=== PATIENT | female | born 1990 | race Caucasian/White ===

== ENCOUNTER 2017-07-26 13:44 | Inpatient (IN) | payer OTHER ==
[~2017-07-26] VITALS: Ht 166.9 cm; Wt 91.8 kg
[2017-07-26] MEDS ORDERED: BISACODYL 10 MG SUPP PR PRN (15:30)
[2017-07-26] MEDS ORDERED: POLYETHYLENE GLYCOL 17 GM PACKET PO PRN (15:30)
[2017-07-26] MEDS ORDERED: OXYcodone IR 5MG TABLET PO PRN (15:30)
[2017-07-26] MEDS ORDERED: LABETALOL 5MG/ML, 20ML IVPush PRN (15:30)
[2017-07-26] MEDS ORDERED: DOCUSATE 100 MG CAPSULE PO PRN (15:30)
[2017-07-26] MEDS ORDERED: LORazepam 2 MG/ML, 1ML IVPush PRN (16:00)
[2017-07-26] MEDS ORDERED: LORazepam 2 MG/ML, 1ML IVPush ONE (16:00)
[2017-07-26] MEDS ORDERED: PLEASE ENTER ALLERGIES MC SCH (16:00)
[2017-07-26] MEDS ORDERED: MEROPENEM 1 GM in SODIUM CHLORIDE 0.9% 100 ML IV SCH (18:00)
[2017-07-26] MEDS ORDERED: GADOBUTROL 10 MMOL/10 ML VIAL ONE (18:01)
[2017-07-26] MEDS: SODIUM CHLORIDE 0.45% 1,000 ML IV SCH (18:24)
[2017-07-26] MEDS: ENOXAPARIN 40 MG/0.4 ML SQ SCH (18:24)
[2017-07-26] MEDS: HYDROmorphone 2 MG/ML, 1ML IVPush PRN ×4 (18:25→22:17)
[2017-07-26 19:00] VITALS: BP 142/76
[2017-07-26] MEDS ORDERED: LEVOFLOXACIN/PMX 750MG/150ML 150 ML IV SCH (20:00)
[2017-07-26] MEDS: METRONIDAZOLE PMX 500MG/100ML 100 ML IV SCH (20:01)
[2017-07-26 22:28] VITALS: BP 142/76
[2017-07-27] MEDS: HYDROmorphone 2 MG/ML, 1ML IVPush PRN ×5 (01:19→20:56)
[2017-07-27] MEDS: SODIUM CHLORIDE 0.45% 1,000 ML IV SCH ×4 (03:09→23:43)
[2017-07-27 04:00] VITALS: BP 143/77
[2017-07-27] MEDS: METRONIDAZOLE PMX 500MG/100ML 100 ML IV SCH (04:12)
[2017-07-27 04:30] LABS: MEAN CORPUSCULAR HEMOGLOBIN 29.9 pg (27.0-34.8); MEAN CORPUSCULAR HGB CONC 33.8 g/dL (32.4-35.8); MEAN CORPUSCULAR VOLUME 88.3 fL (80-100); MEAN PLATELET VOLUME 7.9 fL (7.4-10.4); PLATELET COUNT 474 x10^3/uL (130-400); RED BLOOD COUNT 3.31 x10^6/uL (3.82-5.3); RED CELL DISTRIBUTION WIDTH 15.1 % (9.6-15.2)
[2017-07-27 04:37] LABS: PROTHROMBIN TIME 10.3 Seconds (9.6-11.5)
[2017-07-27 04:48] LABS: HEMOGLOBIN A1C 10.1 % (4.2-6.3)
[2017-07-27 05:12] LABS: ALBUMIN 0.8 g/dL (3.4-5.0); ANION GAP 10 mmol/L (5-15); CALCIUM 7.5 mg/dL (8.5-10.1); CHLORIDE 98 mmol/L (98-107); CHOLESTEROL, TOTAL 322 mg/dL (140-239); TRIGLYCERIDES 627 mg/dL (50-200)
[2017-07-27 05:22] LABS: ALANINE AMINOTRANSFERASE 46 U/L (12-78); ALKALINE PHOSPHATASE 63 U/L (45-117); BILIRUBIN,TOTAL 0.2 mg/dL (0.2-1.0); CHOL/HDL RATIO 40.3; CREATININE 0.49 mg/dL (0.55-1.02); HDL CHOL % 2 % (28-40); HDL CHOLESTEROL (DIRECT) 8 mg/dL (40-60); TOTAL PROTEIN 5.9 g/dL (6.4-8.2)
[2017-07-27 05:29] LABS: SEDIMENTATION RATE > 120 mm/hr (0-20)
[2017-07-27 05:30] LABS: HCT (SEDRATE) 29.2 % (34.6-47.8)
[2017-07-27 05:36] LABS: MD YES
[2017-07-27 05:39] LABS: ANISOCYTOSIS 1+; BAND#(MANUAL) 0.85 x10^3/uL; BANDS%(MANUAL) 7 % (0-7); EOS#(MANUAL) 0.73 x10^3/uL (0.0-0.4); EOS% (MANUAL) 6 % (1-7); LYMPH#(MANUAL) 1.82 x10^3/uL (1-3.4); LYMPHS% (MANUAL) 15 % (22-44); METAMYELOCYTES# (MANUAL) 0.24 x10^3/uL (0-0); METAMYELOCYTES% (MANUAL) 2 % (0-1); MONOS#(MANUAL) 0.85 x10^3/uL (0.3-2.7); MONOS% (MANUAL) 7 % (2-9); MYELOCYTES# (MANUAL) 0.48 x10^3/uL (0-0); MYELOCYTES% (MANUAL) 4 % (0-0); SEG#(MANUAL) 7.14 x10^3/uL (1.8-6.8); SEGS% (MANUAL) 59 % (42-75)
[2017-07-27 05:40] LABS: <PLATELET ESTIMATE> INCREASED; <PLT MORPHOLOGY> NORMAL PLT MORPH; POLYCHROMASIA 1+; TOXIC GRAN 1+
[2017-07-27 05:49] LABS: FREE T4 (FREE THYROXINE) 0.89 ng/dL (0.76-1.46)
[2017-07-27] MEDS: PANTOPRAZOLE 40 MG IV IVPush SCH (08:23)
[2017-07-27] MEDS ORDERED: KETOROLAC 30 MG/1 ML IVPush PRN (09:30)
[2017-07-27] MEDS: NICOTINE 14MG/24 HR PATCH.TD24 TD SCH (11:31)
[2017-07-27] MEDS: INSULIN GLARGINE 100 UNITS/ML, PEN SQ-INSULIN SCH (12:28)
[2017-07-27] MEDS: INSULIN LISPRO 100 UNITS/ML, PEN SQ-INSULIN SCH ×3 (12:28→20:56)
[2017-07-27] MEDS: FENOFIBRATE 145 MG TABLET PO SCH (12:34)
[2017-07-27] MEDS: ENOXAPARIN 40 MG/0.4 ML SQ SCH (14:19)
[2017-07-27 14:55] VITALS: BP 137/79
[2017-07-27] MEDS: ACETAMINOPHEN 325 MG TABLET PO PRN (16:37)
[2017-07-27 19:44] VITALS: BP 142/86
[2017-07-28] MEDS: HYDROmorphone 2 MG/ML, 1ML IVPush PRN ×4 (02:55→22:43)
[2017-07-28 02:58] VITALS: BP 136/79
[2017-07-28] MEDS: ACETAMINOPHEN 325 MG TABLET PO PRN (05:00)
[2017-07-28 06:05] LABS: MEAN CORPUSCULAR HEMOGLOBIN 29.9 pg (27.0-34.8); MEAN CORPUSCULAR HGB CONC 33.8 g/dL (32.4-35.8); MEAN CORPUSCULAR VOLUME 88.5 fL (80-100); MEAN PLATELET VOLUME 7.5 fL (7.4-10.4); PLATELET COUNT 473 x10^3/uL (130-400); RED BLOOD COUNT 3.14 x10^6/uL (3.82-5.3); RED CELL DISTRIBUTION WIDTH 14.8 % (9.6-15.2)
[2017-07-28 06:15] LABS: ALBUMIN 0.8 g/dL (3.4-5.0); ANION GAP 11 mmol/L (5-15); CALCIUM 8.1 mg/dL (8.5-10.1); CHLORIDE 101 mmol/L (98-107)
[2017-07-28 06:20] LABS: ALANINE AMINOTRANSFERASE 36 U/L (12-78); ALKALINE PHOSPHATASE 64 U/L (45-117); BILIRUBIN,TOTAL 0.3 mg/dL (0.2-1.0); CREATININE 0.37 mg/dL (0.55-1.02); TOTAL PROTEIN 5.7 g/dL (6.4-8.2); TRIGLYCERIDES 397 mg/dL (50-200)
[2017-07-28] MEDS: INSULIN LISPRO 100 UNITS/ML, PEN SQ-INSULIN SCH ×4 (06:21→20:27)
[2017-07-28] MEDS: SODIUM CHLORIDE 0.45% 1,000 ML IV SCH ×3 (06:22→20:28)
[2017-07-28 06:24] LABS: MD YES
[2017-07-28 06:27] LABS: BAND#(MANUAL) 2.18 x10^3/uL; BANDS%(MANUAL) 16 % (0-7); EOS#(MANUAL) 0.14 x10^3/uL (0.0-0.4); EOS% (MANUAL) 1 % (1-7); LYMPH#(MANUAL) 2.86 x10^3/uL (1-3.4); LYMPHS% (MANUAL) 21 % (22-44); METAMYELOCYTES# (MANUAL) 0.68 x10^3/uL (0-0); METAMYELOCYTES% (MANUAL) 5 % (0-1); MONOS#(MANUAL) 1.09 x10^3/uL (0.3-2.7); MONOS% (MANUAL) 8 % (2-9); MYELOCYTES# (MANUAL) 0.54 x10^3/uL (0-0); MYELOCYTES% (MANUAL) 4 % (0-0); SEG#(MANUAL) 6.12 x10^3/uL (1.8-6.8); SEGS% (MANUAL) 45 % (42-75)
[2017-07-28 06:34] LABS: ANISOCYTOSIS 1+; POLYCHROMASIA 1+
[2017-07-28 06:35] LABS: <PLATELET ESTIMATE> INCREASED; <PLT MORPHOLOGY> NORMAL PLT MORPH
[2017-07-28 07:24] VITALS: BP 116/78
[2017-07-28] MEDS: PANTOPRAZOLE 40 MG IV IVPush SCH (09:55)
[2017-07-28] MEDS: NICOTINE 14MG/24 HR PATCH.TD24 TD SCH (09:56)
[2017-07-28] MEDS: FENOFIBRATE 145 MG TABLET PO SCH (13:04)
[2017-07-28] MEDS: INSULIN GLARGINE 100 UNITS/ML, PEN SQ-INSULIN SCH (13:05)
[2017-07-28 13:21] VITALS: BP 131/83
[2017-07-28] MEDS: ENOXAPARIN 40 MG/0.4 ML SQ SCH (16:03)
[2017-07-28 20:28] VITALS: BP 131/89
[2017-07-29 01:39] VITALS: BP 131/72
[2017-07-29] MEDS: SODIUM CHLORIDE 0.45% 1,000 ML IV SCH ×4 (02:33→22:51)
[2017-07-29] MEDS: HYDROmorphone 2 MG/ML, 1ML IVPush PRN ×3 (04:47→17:55)
[2017-07-29 07:45] VITALS: BP 117/79
[2017-07-29] MEDS: PANTOPRAZOLE 40 MG IV IVPush SCH (09:43)
[2017-07-29] MEDS: NICOTINE 14MG/24 HR PATCH.TD24 TD SCH (09:43)
[2017-07-29] MEDS: INSULIN LISPRO 100 UNITS/ML, PEN SQ-INSULIN SCH ×4 (09:44→20:25)
[2017-07-29] MEDS: FENOFIBRATE 145 MG TABLET PO SCH (11:45)
[2017-07-29] MEDS: INSULIN GLARGINE 100 UNITS/ML, PEN SQ-INSULIN SCH (11:45)
[2017-07-29 12:20] VITALS: BP 121/80
[2017-07-29] MEDS: ENOXAPARIN 40 MG/0.4 ML SQ SCH (16:09)
[2017-07-29 19:24] VITALS: BP 128/87
[2017-07-30] MEDS: HYDROmorphone 2 MG/ML, 1ML IVPush PRN ×4 (00:03→20:23)
[2017-07-30 00:10] VITALS: BP 124/77
[2017-07-30 05:30] LABS: MEAN CORPUSCULAR HEMOGLOBIN 30.1 pg (27.0-34.8); MEAN CORPUSCULAR HGB CONC 33.8 g/dL (32.4-35.8); MEAN CORPUSCULAR VOLUME 88.9 fL (80-100); MEAN PLATELET VOLUME 7.5 fL (7.4-10.4); PLATELET COUNT 487 x10^3/uL (130-400)
[2017-07-30] MEDS: SODIUM CHLORIDE 0.45% 1,000 ML IV SCH (05:32)
[2017-07-30 05:41] LABS: CHLORIDE 101 mmol/L (98-107)
[2017-07-30 05:59] LABS: ALANINE AMINOTRANSFERASE 29 U/L (12-78); ALBUMIN 0.9 g/dL (3.4-5.0); ALKALINE PHOSPHATASE 69 U/L (45-117); ANION GAP 8 mmol/L (5-15); BILIRUBIN,TOTAL 0.3 mg/dL (0.2-1.0); CALCIUM 8.1 mg/dL (8.5-10.1); CREATININE 0.39 mg/dL (0.55-1.02); TOTAL PROTEIN 5.9 g/dL (6.4-8.2); TRIGLYCERIDES 321 mg/dL (50-200)
[2017-07-30 06:10] LABS: MD YES
[2017-07-30 06:13] LABS: BAND#(MANUAL) 1.11 x10^3/uL; BANDS%(MANUAL) 9 % (0-7); EOS#(MANUAL) 0.12 x10^3/uL (0.0-0.4); EOS% (MANUAL) 1 % (1-7); LYMPH#(MANUAL) 1.23 x10^3/uL (1-3.4); LYMPHS% (MANUAL) 10 % (22-44); METAMYELOCYTES# (MANUAL) 0.49 x10^3/uL (0-0); METAMYELOCYTES% (MANUAL) 4 % (0-1); MONOS#(MANUAL) 0.12 x10^3/uL (0.3-2.7); MONOS% (MANUAL) 1 % (2-9); MYELOCYTES# (MANUAL) 0.25 x10^3/uL (0-0); MYELOCYTES% (MANUAL) 2 % (0-0); NRBC % (MANUAL) 1 % (0-1); PROGRANULOCYTES# (MANUAL) 0.12 x10^3/uL (0-0); PROGRANULOCYTES% (MANUAL) 1 % (0-0); SEG#(MANUAL) 8.86 x10^3/uL (1.8-6.8); SEGS% (MANUAL) 72 % (42-75)
[2017-07-30 06:15] LABS: <PLATELET ESTIMATE> INCREASED; <PLT MORPHOLOGY> NORMAL PLT MORPH; ANISOCYTOSIS 1+; POLYCHROMASIA 1+; TOXIC GRAN 1+
[2017-07-30] MEDS: INSULIN LISPRO 100 UNITS/ML, PEN SQ-INSULIN SCH ×5 (07:00→21:38)
[2017-07-30 07:25] VITALS: BP 115/81
[2017-07-30] MEDS: NICOTINE 14MG/24 HR PATCH.TD24 TD SCH (08:12)
[2017-07-30] MEDS: POTASSIUM CHLORIDE 20 MEQ in LACTATED RINGERS 1,000 ML IV SCH ×2 (08:12→22:31)
[2017-07-30] MEDS: PANTOPRAZOLE 40 MG IV IVPush SCH (08:12)
[2017-07-30] MEDS: FENOFIBRATE 145 MG TABLET PO SCH (12:07)
[2017-07-30] MEDS: INSULIN GLARGINE 100 UNITS/ML, PEN SQ-INSULIN SCH (12:08)
[2017-07-30 12:33] VITALS: BP 125/84
[2017-07-30] MEDS: ENOXAPARIN 40 MG/0.4 ML SQ SCH (15:35)
[2017-07-30 19:47] VITALS: BP 134/85
[2017-07-31] MEDS: ACETAMINOPHEN 325 MG TABLET PO PRN ×2 (00:20→20:41)
[2017-07-31] MEDS: INSULIN LISPRO 100 UNITS/ML, PEN SQ-INSULIN SCH ×7 (00:22→23:00)
[2017-07-31 02:00] VITALS: BP 127/91
[2017-07-31] MEDS: HYDROmorphone 2 MG/ML, 1ML IVPush PRN ×4 (03:32→22:50)
[2017-07-31] MEDS: POTASSIUM CHLORIDE 20 MEQ in LACTATED RINGERS 1,000 ML IV SCH ×3 (05:40→18:21)
[2017-07-31] MEDS: PANTOPRAZOLE 40 MG IV IVPush SCH (08:32)
[2017-07-31] MEDS: NICOTINE 14MG/24 HR PATCH.TD24 TD SCH (08:32)
[2017-07-31 08:39] VITALS: BP 123/80
[2017-07-31 12:25] VITALS: BP 136/84
[2017-07-31] MEDS: FENOFIBRATE 145 MG TABLET PO SCH (12:37)
[2017-07-31] MEDS: ONDANSETRON 2MG/ML, 2ML IVPush PRN ×2 (14:11→20:41)
[2017-07-31] MEDS: INSULIN GLARGINE 100 UNITS/ML, PEN SQ-INSULIN SCH (14:11)
[2017-07-31] MEDS: ENOXAPARIN 40 MG/0.4 ML SQ SCH (16:09)
[2017-07-31 20:50] VITALS: BP 125/86
[2017-08-01] MEDS: POTASSIUM CHLORIDE 20 MEQ in LACTATED RINGERS 1,000 ML IV SCH ×3 (01:40→16:20)
[2017-08-01 01:47] VITALS: BP 133/85
[2017-08-01] MEDS: INSULIN LISPRO 100 UNITS/ML, PEN SQ-INSULIN SCH ×6 (03:00→23:00)
[2017-08-01 07:14] VITALS: BP 138/85
[2017-08-01] MEDS: PANTOPRAZOLE 40 MG IV IVPush SCH (07:26)
[2017-08-01] MEDS: NICOTINE 14MG/24 HR PATCH.TD24 TD SCH (07:27)
[2017-08-01] MEDS: HYDROmorphone 2 MG/ML, 1ML IVPush PRN ×3 (07:27→20:10)
[2017-08-01] MEDS: ONDANSETRON 2MG/ML, 2ML IVPush PRN (07:40)
[2017-08-01 09:09] LABS: ANION GAP 9 mmol/L (5-15); CALCIUM 8.5 mg/dL (8.5-10.1); CHLORIDE 99 mmol/L (98-107); CREATININE 0.44 mg/dL (0.55-1.02)
[2017-08-01] MEDS ORDERED: OMNIPAQUE 350 MG/ML, 100ML BOTTLE ONE (10:24)
[2017-08-01] MEDS: FENOFIBRATE 145 MG TABLET PO SCH (12:51)
[2017-08-01] MEDS: INSULIN GLARGINE 100 UNITS/ML, PEN SQ-INSULIN SCH (12:52)
[2017-08-01 15:24] VITALS: BP 124/90
[2017-08-01] MEDS: ENOXAPARIN 40 MG/0.4 ML SQ SCH (16:20)
[2017-08-01] MEDS ORDERED: MAGNESIUM SULFATE PMX 2GM/50ML 50 ML IV ONE (17:30)
[2017-08-01 20:00] VITALS: BP 138/85
[2017-08-02 02:00] VITALS: BP 136/82
[2017-08-02] MEDS: INSULIN LISPRO 100 UNITS/ML, PEN SQ-INSULIN SCH ×6 (03:00→23:00)
[2017-08-02] MEDS: POTASSIUM CHLORIDE 20 MEQ in LACTATED RINGERS 1,000 ML IV SCH ×3 (03:21→17:19)
[2017-08-02] MEDS: HYDROmorphone 2 MG/ML, 1ML IVPush PRN ×3 (03:22→17:39)
[2017-08-02] MEDS: ONDANSETRON 2MG/ML, 2ML IVPush PRN ×2 (03:36→18:32)
[2017-08-02 06:54] VITALS: BP 120/82
[2017-08-02] MEDS: PANTOPRAZOLE 40 MG IV IVPush SCH (07:40)
[2017-08-02] MEDS: NICOTINE 14MG/24 HR PATCH.TD24 TD SCH (07:41)
[2017-08-02 12:35] VITALS: BP 125/84
[2017-08-02] MEDS: FENOFIBRATE 145 MG TABLET PO SCH (12:41)
[2017-08-02] MEDS: INSULIN GLARGINE 100 UNITS/ML, PEN SQ-INSULIN SCH (12:42)
[2017-08-02 14:46] LABS: ALANINE AMINOTRANSFERASE 22 U/L (12-78); ALBUMIN 1.2 g/dL (3.4-5.0); ANION GAP 7 mmol/L (5-15); CALCIUM 8.4 mg/dL (8.5-10.1); CHLORIDE 101 mmol/L (98-107); CREATININE 0.41 mg/dL (0.55-1.02)
[2017-08-02 14:48] LABS: ALKALINE PHOSPHATASE 67 U/L (45-117); BILIRUBIN,TOTAL 0.1 mg/dL (0.2-1.0); TOTAL PROTEIN 6.1 g/dL (6.4-8.2)
[2017-08-02] MEDS ORDERED: DULO60CA7 PO (15:43)
[2017-08-02] MEDS ORDERED: ESCI10TA10 PO (15:43)
[2017-08-02] MEDS ORDERED: DICY20TA3 PO (15:43)
[2017-08-02] MEDS ORDERED: OMEP10CA4 PO (15:43)
[2017-08-02] MEDS ORDERED: GABA300C10 PO (15:43)
[2017-08-02] MEDS: ENOXAPARIN 40 MG/0.4 ML SQ SCH (15:54)
[2017-08-02] MEDS ORDERED: DIPHENHYDRAMINE 25 MG CAPSULE PO PRN (17:00)
[2017-08-02 20:00] VITALS: BP 130/81
[2017-08-02] MEDS: DULOXETINE 30 MG CAPSULE.DR PO SCH (21:04)
[2017-08-03] MEDS: POTASSIUM CHLORIDE 20 MEQ in LACTATED RINGERS 1,000 ML IV SCH ×2 (00:14→06:19)
[2017-08-03] MEDS: HYDROmorphone 2 MG/ML, 1ML IVPush PRN (00:14)
[2017-08-03 02:00] VITALS: BP 139/89
[2017-08-03] MEDS: INSULIN LISPRO 100 UNITS/ML, PEN SQ-INSULIN SCH ×6 (02:03→23:00)
[2017-08-03 07:14] VITALS: BP 132/83
[2017-08-03] MEDS ORDERED: DULOXETINE 30 MG CAPSULE.DR PO SCH (09:00)
[2017-08-03] MEDS: CITALOPRAM 20 MG TABLET PO SCH (09:10)
[2017-08-03] MEDS ORDERED: FUROSEMIDE 20 MG/2 ML IV ONE (09:30)
[2017-08-03] MEDS: NICOTINE 14MG/24 HR PATCH.TD24 TD SCH (11:21)
[2017-08-03] MEDS: OXYcodone IR 5MG TABLET PO PRN ×2 (11:38→19:37)
[2017-08-03 12:40] VITALS: BP 121/80
[2017-08-03] MEDS: FENOFIBRATE 145 MG TABLET PO SCH (13:06)
[2017-08-03] MEDS: INSULIN GLARGINE 100 UNITS/ML, PEN SQ-INSULIN SCH (13:07)
[2017-08-03] MEDS: ENOXAPARIN 40 MG/0.4 ML SQ SCH (16:47)
[2017-08-03 19:56] VITALS: BP 123/70
[2017-08-03] MEDS: DULOXETINE 30 MG CAPSULE.DR PO SCH (21:17)
[2017-08-04] MEDS: OXYcodone IR 5MG TABLET PO PRN (00:43)
[2017-08-04 02:00] VITALS: BP 132/84
[2017-08-04] MEDS: INSULIN LISPRO 100 UNITS/ML, PEN SQ-INSULIN SCH ×6 (03:00→23:00)
[2017-08-04] MEDS: ACETAMINOPHEN 500 MG TABLET PO SCH ×3 (08:43→23:53)
[2017-08-04] MEDS: CITALOPRAM 20 MG TABLET PO SCH (08:43)
[2017-08-04 08:50] VITALS: BP 121/84
[2017-08-04] MEDS: NICOTINE 14MG/24 HR PATCH.TD24 TD SCH (11:07)
[2017-08-04] MEDS: FENOFIBRATE 145 MG TABLET PO SCH (13:34)
[2017-08-04] MEDS: INSULIN GLARGINE 100 UNITS/ML, PEN SQ-INSULIN SCH (13:40)
[2017-08-04 13:55] VITALS: BP 125/83
[2017-08-04] MEDS: ENOXAPARIN 40 MG/0.4 ML SQ SCH (16:03)
[2017-08-04 20:00] VITALS: BP 132/74
[2017-08-04] MEDS: DULOXETINE 30 MG CAPSULE.DR PO SCH (20:10)
[2017-08-05 02:00] VITALS: BP 125/85
[2017-08-05] MEDS: INSULIN LISPRO 100 UNITS/ML, PEN SQ-INSULIN SCH ×2 (03:00→08:19)
[2017-08-05] MEDS ORDERED: ACET500T71 PO (06:17)
[2017-08-05] MEDS ORDERED: METF500T4 PO (06:17)
[2017-08-05] MEDS ORDERED: FENO145T13 PO (06:17)
[2017-08-05] MEDS ORDERED: TRAM50TA2 PO (06:17)
[2017-08-05] MEDS ORDERED: INSU100I13 SQ-INSULIN (06:17)
[2017-08-05] MEDS ORDERED: OXYC5TAB3 PO (06:18)
[2017-08-05 07:02] VITALS: BP 111/76
[2017-08-05] MEDS ORDERED: ACETAMINOPHEN 325 MG TABLET ONE (08:18)
[2017-08-05] MEDS: ACETAMINOPHEN 500 MG TABLET PO SCH (08:26)
[2017-08-05] MEDS: CITALOPRAM 20 MG TABLET PO SCH (08:27)
[2017-08-05] MEDS: NICOTINE 14MG/24 HR PATCH.TD24 TD SCH (10:04)
== END 2017-08-05 10:51 | disposition home or self-care (01) | DRG 438 ==
LOC: CCU 15:02 → 4WST 07-27 13:34 → DCLOUNGE 08-05 10:34
PROVIDERS: ADMIT Internal Medicine; ATTEND Family Medicine
DX: K85.90 Acute pancreatitis without necrosis or infection, unspecified (principal); E43 Unspecified severe protein-calorie malnutrition; J96.01 Acute respiratory failure with hypoxia; E87.3 Alkalosis; R65.10 Systemic inflammatory response syndrome (SIRS) of non-infectious origin without acute organ dysfunction; E88.81 Metabolic syndrome and other insulin resistance; E11.65 Type 2 diabetes mellitus with hyperglycemia; E83.42 Hypomagnesemia; E87.1 Hypo-osmolality and hyponatremia; K86.3 Pseudocyst of pancreas; K75.9 Inflammatory liver disease, unspecified; D18.03 Hemangioma of intra-abdominal structures; Z88.6 Allergy status to analgesic agent; Z88.8 Allergy status to other drugs, medicaments and biological substances; E28.2 Polycystic ovarian syndrome; Z68.33 Body mass index [BMI] 33.0-33.9, adult; E66.9 Obesity, unspecified; E78.2 Mixed hyperlipidemia; F17.210 Nicotine dependence, cigarettes, uncomplicated; F32.9 Major depressive disorder, single episode, unspecified; F41.9 Anxiety disorder, unspecified; K25.9 Gastric ulcer, unspecified as acute or chronic, without hemorrhage or perforation; K58.0 Irritable bowel syndrome with diarrhea; K76.0 Fatty (change of) liver, not elsewhere classified; K82.8 Other specified diseases of gallbladder; K86.1 Other chronic pancreatitis; N80.9 Endometriosis, unspecified; Z82.49 Family history of ischemic heart disease and other diseases of the circulatory system; Z83.3 Family history of diabetes mellitus; Z86.32 Personal history of gestational diabetes; Z87.11 Personal history of peptic ulcer disease
CPT/HCPCS: 36415; 74177; 74183; 80048; 80053; 80061; 80074; 82150; 82962; 83036; 83605; 83690; 83735; 84100; 84439; 84443; 84478; 84481; 85025; 85610; 85651; 86038; 86141; 86430; 87040; 87081; A9585; J1170; J1650; J1956; J2405; J3480; Q9967; C9113; J1815; J1940; J2060; J3475; J7120; Q0163

== ENCOUNTER 2018-06-13 09:31 | Day surgery (SDC) | payer OTHER ==
[~2018-06-13] VITALS: Ht 167.6 cm; Wt 96.3 kg
[~2018-06-13 09:31] MED LIST: ACET500T71 PO; BUPIVACAINE/PF-EPI 0.5% 1:200K ONE; DICY20TA3 PO; DULO60CA7 PO; ESCI10TA10 PO; FENO145T30 PO; GABA300C10 PO; INSU100I13 SQ-INSULIN; INSU100I28 SQ-INSULIN; METF500T17 PO; OMEP10CA4 PO; OXYC5TAB3 PO; TRAM50TA2 PO; WATER PILL PO
[2018-06-13] MEDS ORDERED: LACTATED RINGERS 1,000 ML IV SCH ×2 (10:04→12:03)
[2018-06-13] MEDS ORDERED: MIDAZOLAM 1 MG/ML, 2ML ONE (10:06)
[2018-06-13 10:24] VITALS: BP 122/84
[2018-06-13] MEDS ORDERED: LORazepam 2 MG/ML, 1ML IVPush ONE (10:30)
[2018-06-13] MEDS ORDERED: OXYcodone IR 5MG TABLET PO ONE (10:30)
[2018-06-13] MEDS ORDERED: METOCLOPRAMIDE 5 MG/ML, 2ML IVPush ONE (10:30)
[2018-06-13] MEDS ORDERED: ONDANSETRON ODT 8 MG PO ONE (10:30)
[2018-06-13] MEDS ORDERED: LORazepam 2 MG/ML, 1ML ONE (10:30)
[2018-06-13] MEDS ORDERED: MEPERIDINE/PF 25MG/0.5ML IVPush PRN (11:00)
[2018-06-13] MEDS ORDERED: LABETALOL 5MG/ML, 20ML IV PRN (11:00)
[2018-06-13] MEDS ORDERED: MIDAZOLAM 1 MG/ML, 2ML IV PRN (11:00)
[2018-06-13] MEDS ORDERED: ONDANSETRON 2MG/ML, 2ML IVPush PRN ×2 (11:00→12:30)
[2018-06-13] MEDS ORDERED: ONDANSETRON 2MG/ML, 2ML ONE (11:01)
[2018-06-13] MEDS ORDERED: GLYCOPYRROLATE 0.2MG/1ML, 5ML ONE (11:01)
[2018-06-13] MEDS ORDERED: SUCCINYLCHOLINE 20 MG/ML, 10ML ONE (11:01)
[2018-06-13] MEDS ORDERED: METOCLOPRAMIDE 5 MG/ML, 2ML ONE (11:01)
[2018-06-13] MEDS ORDERED: EPHEDRINE 50 MG/ML, 1ML ONE (11:01)
[2018-06-13] MEDS ORDERED: NEOSTIGMINE 1 MG/ML, 10ML ONE (11:01)
[2018-06-13] MEDS ORDERED: CEFAZOLIN 1,000 MG ONE (11:01)
[2018-06-13] MEDS ORDERED: PROPOFOL 10 MG/ML, 20ML ONE (11:01)
[2018-06-13] MEDS ORDERED: ROCURONIUM 10 MG/ML,10ML ONE (11:01)
[2018-06-13] MEDS ORDERED: OXYcodone 5 MG/5 ML ORAL.SOL UDC ONE (12:16)
[2018-06-13] MEDS ORDERED: FENTANYL PF 100 MCG/2ML ONE (12:16)
[2018-06-13] MEDS ORDERED: HYDROmorphone 2 MG/ML, 1ML ONE (12:16)
[2018-06-13] MEDS: FENTANYL PF 100 MCG/2ML IV PRN ×4 (12:21→12:50)
[2018-06-13] MEDS: OXYcodone 5 MG/5 ML ORAL.SOL UDC PO PRN ×2 (12:21→14:17)
[2018-06-13] MEDS ORDERED: HYDROmorphone 1 MG/ML, 1ML IVPush PRN (12:30)
[2018-06-13] MEDS: HYDROmorphone 1 MG/ML, 1ML IV PRN ×2 (12:41→12:55)
[2018-06-13] MEDS ORDERED: ACETAMINOPHEN 325 MG TABLET PO PRN (14:30)
[2018-06-13] MEDS ORDERED: OXYcodone/APAP 7.5/325MG TABLET PO PRN ×2 (18:30)
== END 2018-06-13 20:35 | disposition home or self-care (01) ==
LOC: OUT 09:31 → 4NOR 18:54 → OUT 20:35
PROVIDERS: ATTEND Surgery
DX: K80.10 Calculus of gallbladder with chronic cholecystitis without obstruction (principal); K76.0 Fatty (change of) liver, not elsewhere classified; F32.9 Major depressive disorder, single episode, unspecified; E11.9 Type 2 diabetes mellitus without complications; E78.5 Hyperlipidemia, unspecified
CPT/HCPCS: 47562; 81025; 82962; 88304; J0330; J0690; J1170; J2060; J2250; J2405; J2704; J2710; J2765; J3010; J3490; J7120; Q0162; G0378

== ENCOUNTER 2018-12-12 18:42 | Inpatient (IN) | payer OTHER ==
[~2018-12-12] VITALS: Ht 167.6 cm; Wt 100.2 kg
[~2018-12-12 18:42] MED LIST changes: -BUPIVACAINE/PF-EPI 0.5% 1:200K ONE
[2018-12-12] MEDS ORDERED: SODIUM CHLORIDE FLUSH 10ML SYR IVF ONE (19:30)
[2018-12-12 20:10] LABS: ALBUMIN 1.9 g/dL (3.4-5.0); ANION GAP 9 mmol/L (5-15); CALCIUM 7.2 mg/dL (8.5-10.1); CHLORIDE 102 mmol/L (98-107)
[2018-12-12 20:16] LABS: ALKALINE PHOSPHATASE 77 U/L (45-117); BILIRUBIN,TOTAL 0.8 mg/dL (0.2-1.0); CREATININE 0.75 mg/dL (0.55-1.02); TROPONIN I < 0.015 ng/mL (0.000-0.045)
[2018-12-12 20:42] LABS: MEAN CORPUSCULAR HEMOGLOBIN 28.9 pg (27.0-34.8); MEAN CORPUSCULAR HGB CONC 35.9 g/dL (32.4-35.8); MEAN CORPUSCULAR VOLUME 80.4 fL (80-100); MEAN PLATELET VOLUME 9.2 fL (7.4-10.4); PLATELET COUNT 472 x10^3/uL (130-400); RED BLOOD COUNT 3.49 x10^6/uL (3.82-5.3); RED CELL DISTRIBUTION WIDTH 17.7 % (9.6-15.2)
[2018-12-12 20:57] LABS: TOTAL PROTEIN 6.2 g/dL (6.4-8.2)
--- NOTE | 2018-12-12 20:57 | NUR ---
AISHA RN: PT. RETURNS FROM RADIOLOGY. PULSE OX AND BP CUFF ARE IN PLACE. PT.'S URINE WAS COLLECTED AND SENT. PT. HAS THE HOB ELEVATED GREATER THAN 30 DEGREES. PT. HAS C/O PAIN. MEDS REQUESTED FROM DR. BENTON. PT. WAS GIVEN A BLANKET FOR WARMTH. SIDERAILS REMAIN UP X 2 WITH THE CALL LIGHT IN PLACE. VSS. REPORT TO KRISH GONZALES.
[2018-12-12 20:59] LABS: ALANINE AMINOTRANSFERASE 54 U/L (12-78)
[2018-12-12 21:06] LABS: MD YES
[2018-12-12 21:09] LABS: ANISOCYTOSIS 1+; BAND#(MANUAL) 0.22 x10^3/uL; BANDS%(MANUAL) 2 % (0-7); LYMPH#(MANUAL) 2.46 x10^3/uL (1-3.4); LYMPHS% (MANUAL) 22 % (22-44); MONOS#(MANUAL) 0.78 x10^3/uL (0.3-2.7); MONOS% (MANUAL) 7 % (2-9); MYELOCYTES# (MANUAL) 0.11 x10^3/uL (0-0); MYELOCYTES% (MANUAL) 1 % (0-0); SEG#(MANUAL) 7.62 x10^3/uL (1.8-6.8); SEGS% (MANUAL) 68 % (42-75)
[2018-12-12 21:11] LABS: POLYCHROMASIA 1+
[2018-12-12 21:12] LABS: <PLATELET ESTIMATE> INCREASED; LARGE PLATELETS 1+
[2018-12-12 21:18] LABS: MICROSCOPIC AUTO
[2018-12-12 21:21] LABS: CULTURE INDICATED? NO
[2018-12-12] MEDS ORDERED: HYDROmorphone 2 MG/ML, 1ML IV STA (21:44)
[2018-12-12] MEDS ORDERED: HYDROmorphone 2 MG/ML, 1ML ONE (21:47)
[2018-12-12] MEDS ORDERED: FUROSEMIDE 40 MG/4 ML IV ONE (22:00)
[2018-12-12] MEDS ORDERED: FUROSEMIDE 40 MG/4 ML ONE (22:21)
[2018-12-12 22:46] VITALS: BP 129/89
[2018-12-13] MEDS ORDERED: ONDANSETRON 2MG/ML, 2ML IVPush PRN (00:30)
[2018-12-13] MEDS ORDERED: ENALAPRILAT 1.25 MG/ML, 1ML IVPush PRN (00:30)
[2018-12-13] MEDS ORDERED: POLYETHYLENE GLYCOL 17 GM PACKET PO PRN (00:30)
[2018-12-13] MEDS ORDERED: ENOXAPARIN 40 MG/0.4 ML SQ SCH (00:30)
[2018-12-13] MEDS ORDERED: ACETAMINOPHEN 325 MG TABLET PO PRN (00:30)
[2018-12-13] MEDS ORDERED: HYDROmorphone 2 MG/ML, 1ML IVPush PRN (00:30)
[2018-12-13 01:38] VITALS: BP 128/75
[2018-12-13] MEDS: HYDROcodone/APAP 5/325 TABLET PO PRN ×4 (01:40→22:08)
[2018-12-13 02:05] LABS: INTERNATIONAL NORMALIZED RATIO 0.89 (0.93-1.1); PROTHROMBIN TIME 9.4 Seconds (9.6-11.5)
[2018-12-13 02:21] LABS: HEMOGLOBIN A1C 7.4 % (4.2-6.3)
[2018-12-13] MEDS: DICYCLOMINE 20 MG TABLET PO SCH ×4 (05:33→20:52)
[2018-12-13 06:39] LABS: MEAN CORPUSCULAR HEMOGLOBIN 26.7 pg (27.0-34.8); MEAN CORPUSCULAR HGB CONC 33.8 g/dL (32.4-35.8); MEAN CORPUSCULAR VOLUME 79.1 fL (80-100); PLATELET COUNT 362 x10^3/uL (130-400); RED BLOOD COUNT 3.34 x10^6/uL (3.82-5.3); RED CELL DISTRIBUTION WIDTH 16.9 % (9.6-15.2)
[2018-12-13 06:54] LABS: ALBUMIN 1.6 g/dL (3.4-5.0); CALCIUM 7.7 mg/dL (8.5-10.1); CREATININE 0.71 mg/dL (0.55-1.02); TRIGLYCERIDES 818 mg/dL (50-200)
[2018-12-13 06:58] VITALS: BP 119/77
[2018-12-13 07:02] LABS: ALKALINE PHOSPHATASE 72 U/L (45-117); BILIRUBIN,TOTAL 0.3 mg/dL (0.2-1.0); HDL CHOLESTEROL (DIRECT) 42 mg/dL (40-60); TOTAL PROTEIN 5.6 g/dL (6.4-8.2)
[2018-12-13 07:26] LABS: MD YES
[2018-12-13 07:50] LABS: ANION GAP 10 mmol/L (5-15); CHLORIDE 122 mmol/L (98-107); CHOL/HDL RATIO 6.4; HDL CHOL % 16 % (28-40)
[2018-12-13 07:56] LABS: ALANINE AMINOTRANSFERASE 70 U/L (12-78)
[2018-12-13 08:02] LABS: ANISOCYTOSIS 1+; BAND#(MANUAL) 0.08 x10^3/uL; BANDS%(MANUAL) 1 % (0-7); EOS#(MANUAL) 0.42 x10^3/uL (0.0-0.4); EOS% (MANUAL) 5 % (1-7); LYMPH#(MANUAL) 2.52 x10^3/uL (1-3.4); LYMPHS% (MANUAL) 30 % (22-44); MONOS#(MANUAL) 0.17 x10^3/uL (0.3-2.7); MONOS% (MANUAL) 2 % (2-9); MYELOCYTES# (MANUAL) 0.08 x10^3/uL (0-0); MYELOCYTES% (MANUAL) 1 % (0-0); SEG#(MANUAL) 5.12 x10^3/uL (1.8-6.8); SEGS% (MANUAL) 61 % (42-75)
[2018-12-13 08:03] LABS: MICROCYTOSIS 1+; POLYCHROMASIA 1+
[2018-12-13 08:05] LABS: <PLATELET ESTIMATE> ADEQUATE; LARGE PLATELETS 1+; ROULEAUX 1+
[2018-12-13] MEDS: FUROSEMIDE 40 MG/4 ML IV SCH ×2 (09:05→16:50)
[2018-12-13] MEDS: OMEPRAZOLE 10 MG CAPSULE.DR PO SCH (09:05)
[2018-12-13] MEDS: DULOXETINE 30 MG CAPSULE.DR PO SCH (09:05)
[2018-12-13 13:42] VITALS: BP 119/75
[2018-12-13 20:31] VITALS: BP 109/69
[2018-12-14 02:05] VITALS: BP 94/56
[2018-12-14 05:10] LABS: MEAN CORPUSCULAR HEMOGLOBIN 27.1 pg (27.0-34.8); MEAN CORPUSCULAR HGB CONC 33.5 g/dL (32.4-35.8); MEAN PLATELET VOLUME 8.2 fL (7.4-10.4); PLATELET COUNT 361 x10^3/uL (130-400); RED CELL DISTRIBUTION WIDTH 17.2 % (9.6-15.2)
[2018-12-14 05:14] LABS: ANION GAP 6 mmol/L (5-15); CHLORIDE 103 mmol/L (98-107); CREATININE 0.54 mg/dL (0.55-1.02)
[2018-12-14 05:56] LABS: MD YES
[2018-12-14 05:58] LABS: ANISOCYTOSIS 1+; BAND#(MANUAL) 0.14 x10^3/uL; BANDS%(MANUAL) 2 % (0-7); EOS#(MANUAL) 0.14 x10^3/uL (0.0-0.4); EOS% (MANUAL) 2 % (1-7); LYMPH#(MANUAL) 2.06 x10^3/uL (1-3.4); LYMPHS% (MANUAL) 29 % (22-44); MICROCYTOSIS 1+; MONOS#(MANUAL) 0.36 x10^3/uL (0.3-2.7); MONOS% (MANUAL) 5 % (2-9); MYELOCYTES# (MANUAL) 0.07 x10^3/uL (0-0); MYELOCYTES% (MANUAL) 1 % (0-0); POLYCHROMASIA 1+; SEG#(MANUAL) 4.33 x10^3/uL (1.8-6.8); SEGS% (MANUAL) 61 % (42-75)
[2018-12-14 05:59] LABS: <PLATELET ESTIMATE> ADEQUATE; LARGE PLATELETS 1+
[2018-12-14] MEDS: DICYCLOMINE 20 MG TABLET PO SCH ×3 (06:14→17:48)
[2018-12-14 06:43] VITALS: BP 110/63
[2018-12-14] MEDS: DULOXETINE 30 MG CAPSULE.DR PO SCH (08:35)
[2018-12-14] MEDS: OMEPRAZOLE 10 MG CAPSULE.DR PO SCH (08:35)
[2018-12-14] MEDS: FUROSEMIDE 40 MG/4 ML IV SCH ×2 (08:35→17:49)
[2018-12-14] MEDS ORDERED: LIDOCAINE-MPF 1%, 5ML ONE ×3 (10:15→10:22)
[2018-12-14] MEDS ORDERED: FENTANYL PF 100 MCG/2ML ONE ×2 (10:21)
[2018-12-14] MEDS ORDERED: FLUMAZENIL 0.1 MG/1 ML, 5ML ONE (10:21)
[2018-12-14] MEDS ORDERED: NALOXONE 1 MG/ML, 2ML ONE (10:21)
[2018-12-14] MEDS ORDERED: MIDAZOLAM 1 MG/ML, 5ML ONE (10:21)
[2018-12-14 12:28] VITALS: BP 116/75
[2018-12-14] MEDS: HYDROcodone/APAP 5/325 TABLET PO PRN ×2 (12:33→17:49)
[2018-12-14 14:01] LABS: ANA SCREEN NEGATIVE (Negative)
[2018-12-14 14:39] LABS: CREATININE,URINE RANDOM 33.1 mg/dL
[2018-12-14 19:44] VITALS: BP 112/72
== END 2018-12-14 20:06 | disposition left against medical advice (07) | DRG 699 ==
LOC: ED 21:58 → EDIP 22:05 → 4WST 22:59
PROVIDERS: ADMIT Family Medicine; ATTEND Family Medicine
PROC: 0TB13ZX Excision of Left Kidney, Percutaneous Approach, Diagnostic (ICD-10-PCS; principal; 2018-12-14)
DX: N04.9 Nephrotic syndrome with unspecified morphologic changes (principal); E87.0 Hyperosmolality and hypernatremia; D64.9 Anemia, unspecified; Z53.21 Procedure and treatment not carried out due to patient leaving prior to being seen by health care provider; E11.9 Type 2 diabetes mellitus without complications; E66.9 Obesity, unspecified; E78.00 Pure hypercholesterolemia, unspecified; Z68.35 Body mass index [BMI] 35.0-35.9, adult; E78.5 Hyperlipidemia, unspecified; E78.1 Pure hyperglyceridemia; F17.210 Nicotine dependence, cigarettes, uncomplicated; I10 Essential (primary) hypertension; K21.9 Gastro-esophageal reflux disease without esophagitis; K58.9 Irritable bowel syndrome, unspecified; Z80.49 Family history of malignant neoplasm of other genital organs; Z82.61 Family history of arthritis; Z83.3 Family history of diabetes mellitus; Z87.11 Personal history of peptic ulcer disease; Z90.49 Acquired absence of other specified parts of digestive tract; Z88.6 Allergy status to analgesic agent; Z88.1 Allergy status to other antibiotic agents; Z91.040 Latex allergy status
CPT/HCPCS: 36415; 50200; 71045; 77012; 80048; 80053; 80061; 80074; 81001; 82570; 82728; 82962; 83036; 83520; 83540; 83550; 83690; 83735; 83880; 84100; 84156; 84295; 84443; 84466; 84484; 85025; 85379; 85610; 85730; 86038; 86160; 86225; 86256; 86430; 87806; 88300; 93005; 93306; 93970; 99156; 99157; G0378; J1170; J1650; J1940; J2250; J2405; J3010; G0475; J2310